=== PATIENT | male | born 1995 | race Two or more races ===

== ENCOUNTER 2016-09-17 10:40 | Emergency (ER) | payer SELFPAY ==
--- NOTE | ~2016-09-17 | ER ---
PATIENT'S NAME: DIVYA VARMA [facility] AGE: 21 Y [address] ROOM: [place] [address] LOCATION: [facility] ADMIT DATE: 09/17/2016 ER/Outpatient Report DISCHARGE DATE: 09/17/2016 FAMILY PHYSICIAN: PHYSICIAN, NO ATTENDING PHYSICIAN: Jeffrey Martin CHIEF COMPLAINT: Abdominal pain. HISTORY OF PRESENT ILLNESS: The patient states that for the last 2 to 3 weeks, he has had significant abdominal pain. It is centered in the middle of his abdomen around his belly button. It does not radiate either side. It is worse after meals, and it is worse with work. He has not taken anything to make this better. He is Icelandic-speaking only, and environmental service aide was used to facilitate the exam. He denies any other symptoms such as fevers, chills, nausea, vomiting, constipation, or diarrhea. PAST MEDICAL HISTORY: Documented on the record and reviewed by me. SOCIAL HISTORY: Documented on the record and reviewed by me. MEDICATIONS: Documented on the record and reviewed by me. ALLERGIES: DOCUMENTED ON THE RECORD AND REVIEWED BY ME. REVIEW OF SYSTEMS: All systems were reviewed and negative except as noted in the HPI. PHYSICAL EXAMINATION: VITAL SIGNS: Blood pressure is 136/89, pulse is 58, respiratory rate is 14, temp 97.5, SpO2 is 100% on room air. Pain is rated 6/10. GENERAL: An age-appropriate male, smiling, resting comfortably on the exam table. NEUROLOGIC: Awake and alert. GCS 15. No focal deficits. No asymmetry on exam. No obvious speech impediments. HEENT: Normocephalic, atraumatic. Eyes are PERRL. Oropharynx is clear. NECK: Supple. Trachea is midline. CHEST: Heart is regular rate and rhythm with no murmurs. LUNGS: Clear to auscultation bilateral with no rhonchi, wheezes, or rales. ABDOMEN: The abdomen is firm, and the patient does guard involuntarily. He PATIENT'S NAME: DIVYA VARMA [facility] AGE: 21 Y [address] ROOM: [place] [address] LOCATION: ED ADMIT DATE: 09/17/2016 ER/Outpatient Report DISCHARGE DATE: 09/17/2016 FAMILY PHYSICIAN: PHYSICIAN, NO ATTENDING PHYSICIAN: Jeffrey Martin is able to relax. There are no palpable masses or focal tenderness on exam. No abdominal wall defects appreciated. The patient does struggle to relax the abdominal wall. No true peritonitis detected. BACK: Nontender to palpation. No CVA tenderness. EXTREMITIES: Warm and well perfused with no edema or erythema or abnormalities. SKIN: Warm, dry, and intact. LABORATORY DATA AND X-RAYS: CT scan of the abdomen and pelvis is without abnormality per Radiology review. Labs are without significant abnormality. Procalcitonin and CRP are below detectable threshold. CMS without abnormality. Amylase, lipase, GGT within appropriate limits. CBC without appreciable abnormality. Urinalysis with no evidence of infection or blood. IMPRESSION: Abdominal pain, not otherwise specified. EMERGENCY DEPARTMENT COURSE: The patient was seen and evaluated. With pain worsening after meals, ulcer disease is considered; however, this does not fit with his increased pain while at work. Recommend [id number] treatment with anti-inflammatories and antacids as needed. He needs to establish care with a primary care provider and return to the ER as needed. MD DARY LIPSCOMB/brunilda /[id number] d: 09/17/16 2353 t: 09/26/16 0915, OUTPATIENT REPORT
[2016-09-17 11:34] LABS: BASOPHIL # 0.1 K/uL (0.0-0.2); BASOPHIL % 1.1 %; EOSINOPHIL # 0.3 K/uL (0.0-0.5); EOSINOPHIL % 4.2 %; HEMATOCRIT 49.6 % (37.0-53.0); HEMOGLOBIN 16.3 g/dL (12.0-17.0); IMMATURE GRANULOCYTE % 0.3 %; LYMPHOCYTE # 1.8 K/uL (0.8-4.0); LYMPHOCYTE % 28.3 %; MCH 27.9 pg (27.0-34.0); MCHC 32.9 gm/dL (32.0-36.5); MCV 84.8 fl (83.0-98.0); MONOCYTE # 0.6 K/uL (0.0-1.0); MONOCYTE % 9.4 %; MPV 10.9 fl (9.4-12.4); NEUTROPHIL # (ANC) 3.6 K/uL (1.4-9.0); NEUTROPHIL % 56.7 %; NRBC % 0 /100WBC (0-0.00); PLATELET COUNT 299 K/uL (150-450); RBC 5.85 M/uL (4.00-6.00); RDW-CV 12.4 % (11.9-14.6); WBC 6.4 K/uL (4.0-11.0)
[2016-09-17 11:41] LABS: INR - (THERAPEUTIC) 1.06 (0.92-1.07); PROTIME 11.1 SECONDS (9.8-11.4); PTT 35 SECONDS (25-32)
[2016-09-17 11:44] LABS: BILIRUBIN URINE NEGATIVE (NEGATIVE); BLOOD URINE NEGATIVE /UL (NEGATIVE); COLOR URINE YELLOW (YELLOW); GLUCOSE URINE NEGATIVE (NEGATIVE); KETONE URINE NEGATIVE (NEGATIVE); LEUKOCYTES URINE NEGATIVE /UL (NEGATIVE); NITRITE URINE NEGATIVE (NEGATIVE); PROTEIN URINE NEGATIVE (NEGATIVE); TURBIDITY URINE CLEAR (CLEAR); UROBILINOGEN URINE NORMAL (NORMAL)
[2016-09-17 11:59] LABS: ALBUMIN 4.5 gm/dL (3.5-5.0); ALK PHOS 104 IU/L (33-138); ALT 23 IU/L (12-78); ANION GAP 13.2 (10.0-19.0); AST 15 IU/L (10-40); BLOOD UREA NITROGEN 11 mg/dL (6-24); CALCIUM 9.1 mg/dL (8.5-10.5); CHLORIDE 107 mMol/L (96-110); CO2 26 mMol/L (22-32); ESTIMATED GFR (MDRD EQUATION) > 60; POTASSIUM 4.2 mMol/L (3.7-5.1); SODIUM 142 mMol/L (135-145); TOTAL BILIRUBIN 0.3 mg/dL (0.0-1.5)
== END 2016-09-17 13:26 | disposition disaster alternative care site (69) ==
LOC: GMED 10:40
PROVIDERS: Emergency Medicine
DX: R10.9 Unspecified abdominal pain (principal)
CPT/HCPCS: J1170; J2405; Q9967